=== PATIENT | male | born 1945 | race Asian ===

== ENCOUNTER 2019-08-03 00:11 | Inpatient (IN) | payer OTHER ==
[~2019-08-03] VITALS: Ht 170.2 cm; Wt 62.1 kg
[2019-08-03] MEDS ORDERED: SODIUM CHLORIDE 0.9% 1,000 ML IV ONE (01:49)
[2019-08-03] MEDS ORDERED: ONDANSETRON HCL 4 MG/2 ML VIAL IV ONE (02:00)
[2019-08-03] MEDS ORDERED: cefTRIAXone 1GM/50ML D5W 50 ML IV ONE (02:00)
[2019-08-03 02:23] LABS: Hemoglobin 13.1 g/dL (13.5-17.5)
[2019-08-03 02:24] LABS: Hematocrit 42.2 % (41.0-53.0); Mean Corpuscular Hemoglobin 21.4 pg (28.0-32.0); Mean Corpuscular Hgb Conc. 31.1 g/dL (32.0-36.0); Mean Corpuscular Volume 68.9 fL (80.0-100.0); Platelet Count (auto) 207 10^3/uL (140-450); Red Blood Cells 6.12 10^6/uL (4.5-5.90); Red Cell Distribution Width 16.4 % (11.8-14.3); White Blood Cell 11.1 10^3/uL (4.4-10.8)
[2019-08-03 02:34] LABS: Basophils % (manual) 0 (0.0-2.0); Blast Cells 0; Metamyelocytes % 0; Myelocytes % 0; Promyelocytes % 0; Reactive Lymphocytes 0
[2019-08-03 02:43] LABS: Alanine Aminotransferase 34 U/L (16-61); Albumin 4.4 g/dL (3.4-5.0); Anion Gap 8 (5-15); Aspartate Aminotransferase 32 U/L (15-37); BUN/Creatinine Ratio 12.3; Blood Urea Nitrogen 25 mg/dL (7-18); Calcium 9.2 mg/dL (8.5-10.1); Carbon Dioxide 26 mmol/L (21-32); Chloride 107 mmol/L (98-107); GFR African American 42 mL/min; GFR Non-African American 35 mL/min; Glucose 108 mg/dL (74-106); Lipase 112 U/L (73-393); Potassium 4.2 mmol/L (3.5-5.1); Sodium 141 mmol/L (136-145)
[2019-08-03 02:49] LABS: Alkaline Phosphatase 96 U/L (45-117); Bilirubin, Total 0.4 mg/dL (0.2-1.0); Total Protein 8.6 g/dL (6.4-8.2)
[2019-08-03] MEDS ORDERED: metroNIDAZOLE 500MG/100ML 100 ML IV ONE (03:00)
[2019-08-03 03:25] LABS: Band Neutrophils % (manual) 18; Eosinophils % (manual) 1 (0-7); Lymphocytes % (manual) 5 (10.0-50.0); Monocytes % (manual) 2 (0-12)
[2019-08-03 04:08] LABS: Urine Bacteria NONE SEEN /hpf (None Seen); Urine Blood Negative /uL (Negative); Urine Hyaline Cast FEW /lpf (0 - 2); Urine Mucus FEW (None Seen); Urine Specific Gravity 1.011 (1.001-1.035); Urine WBC 1 /hpf (0 - 3)
[2019-08-03] MEDS ORDERED: SODIUM CHLORIDE 0.9% 1,000 ML IV SCH ×3 (05:05→16:15)
[2019-08-03] MEDS ORDERED: ONDANSETRON HCL 4 MG/2 ML VIAL IV PRN (05:15)
[2019-08-03] MEDS ORDERED: TEMAZEPAM 15 MG CAP PO PRN (05:15)
[2019-08-03] MEDS ORDERED: HYDROcodone-ACET 5/325MG TAB PO PRN (05:15)
[2019-08-03] MEDS ORDERED: ACETAMINOPHEN 325 MG TAB PO PRN (05:15)
[2019-08-03 09:00] VITALS: BP 114/66
[2019-08-03 10:00] VITALS: BP 114/66
[2019-08-03] MEDS ORDERED: PANTOPRAZOLE 40 MG TAB PO SCH (10:00)
[2019-08-03] MEDS ORDERED: ATENOLOL 25 MG TAB PO SCH (10:00)
[2019-08-03] MEDS ORDERED: amLODIPine BESYLATE 5 MG TAB PO SCH (10:00)
--- NOTE | 2019-08-03 10:00 | NUR ---
MS admit from ER RUTH DURÁN admitted to tele/MS after SBAR received. Patient oriented to IBRAHIMA ADAN,RN primary RN, unit, room21, bed A, and unit policies regarding patient care and visiting hours. Patient weighed by bedscale and encouraged to call if they need something. All questions and concerns addressed, patient verbalized understanding.
--- NOTE | 2019-08-03 10:30 | NUR ---
PER DOCTOR GARETH HOLD ALL MORNING MEDICATION.
--- NOTE | 2019-08-03 10:33 | NUR ---
SPOKE WITH DOCTOR SERVIN, NEW ORDERS RECEIVED, SEE EMR FOR ORDERS.
[2019-08-03 11:28] LABS: Protein, Urine 10.5 mg/dL (0.0-11.9)
[2019-08-03] MEDS ORDERED: ATEN-60 PO (12:34)
[2019-08-03] MEDS ORDERED: ATOR10TA52 PO (12:34)
[2019-08-03] MEDS ORDERED: AML5T PO (12:34)
[2019-08-03] MEDS ORDERED: LOSA-39 PO (12:34)
[2019-08-03 13:00] VITALS: BP 106/63
[2019-08-03 13:31] LABS: BUN/Creatinine Ratio 14.3; Calcium 8.1 mg/dL (8.5-10.1); Potassium 4.5 mmol/L (3.5-5.1)
--- NOTE | 2019-08-03 14:32 | NUR ---
Doctor Stephanie was at bedside. POC was discussed with this RN. communicated recommendations to this RN. Recommendations will be communicated to . Addendum: 08/03/19 at 1610 by IBRAHIMA ADAN RN RN Recommendations communicated to .
[2019-08-03 17:11] VITALS: BP 102/67
--- NOTE | 2019-08-03 18:04 | NUR ---
Discharge instructions given as ordered. Encourage to follow up with PMD as instructed. All questions and concerns addressed. Patient verbalized understanding. Medication reconciliation form completed and copy given to patient. No home medications held in Pharmacy and none returned to patient, and no needed vaccines given. IV removed with catheter intact, pressure dressing applied. Patient taken to vehicle via wheelchair with all personal belongings, accompanied by staff and family member. No distress noted at time of departure.
[2019-08-03] MEDS ORDERED: cefTRIAXone 1GM/50ML D5W 50 ML IV SCH (21:00)
[2019-08-03] MEDS ORDERED: ATORVASTATIN 20 MG TAB PO SCH (22:00)
== END 2019-08-03 18:04 | disposition home or self-care (01) | DRG 249 ==
LOC: ER 00:12 → OVERFLOW 00:13 → CENTRAL 09:10
PROVIDERS: ADMIT Nurse Practitioner; ATTEND Nurse Practitioner
DX: K52.9 Noninfective gastroenteritis and colitis, unspecified (principal); N17.9 Acute kidney failure, unspecified; R65.10 Systemic inflammatory response syndrome (SIRS) of non-infectious origin without acute organ dysfunction; E86.0 Dehydration; N18.3 Chronic kidney disease, stage 3 (moderate); E78.5 Hyperlipidemia, unspecified; I12.9 Hypertensive chronic kidney disease with stage 1 through stage 4 chronic kidney disease, or unspecified chronic kidney disease; I70.0 Atherosclerosis of aorta; K40.90 Unilateral inguinal hernia, without obstruction or gangrene, not specified as recurrent; K44.9 Diaphragmatic hernia without obstruction or gangrene; G89.29 Other chronic pain; N40.0 Benign prostatic hyperplasia without lower urinary tract symptoms; Z82.3 Family history of stroke; Z82.49 Family history of ischemic heart disease and other diseases of the circulatory system; Z79.899 Other long term (current) drug therapy
CPT/HCPCS: 36415; 71045; 74176; 80048; 80053; 81001; 82570; 83036; 83690; 83880; 84154; 84156; 84300; 84484; 85007; 85027; 93005; G0378; J0696; J2405; J3490

== ENCOUNTER 2024-10-22 08:52 | Emergency (ER) | payer MEDICARE, OTHER ==
[~2024-10-22] VITALS: Ht 170.2 cm; Wt 67.0 kg
[~2024-10-22 08:52] MED LIST: AML5T PO; ATEN-60 PO; ATOR10TA52 PO; LOSA-535 PO
--- NOTE | 2024-10-22 09:21 | ED.PDOC ---
History of Present Illness HPI Comments 78 year old male brought in by daughter presents to the ED with chief complaint of dizziness. Daughter reports that the patient has been experiencing dizziness with associated nausea and vomiting since today, however, the patient had been complaining of SOB since last night. Daughter relays that the patient had a previous CVA with left sided deficits, but does not currently have any facial droop or obvious weakness. Patient denies any diarrhea, abdominal pain, dizziness, chest pain, fever, chills, or dysuria. Chief Complaint: Dizziness Time Seen by MD: 09:16 Primary Care Provider: SIDDHARTH Reviewed Notes: Nurses Notes, Medications, Allergies Allergies: Coded Allergies: NO KNOWN ALLERGIES (Unverified , 08/03/19) Home Meds Reported Medications Losartan Potassium (Losartan Potassium) 100 Mg Tab, 100 MG PO DAILY for 30 Days, MG 08/03/19 Atenolol (Atenolol) 25 Mg Tab, 25 MG PO DAILY for 30 Days, MG 08/03/19 Amlodipine Besylate (NORVASC TABLET) 5 Mg Tb, 2 TAB PO DAILY, #30 TAB 5 Refills 08/03/19 Atorvastatin Calcium (ATORVASTATIN CALCIUM) 10 Mg Tab, 10 MG PO DAILY, TAB 08/03/19 Information Source: Patient, Relative (Daughter) Mode of Arrival: Wheelchair Severity: Moderate Timing: Hours Duration: Since onset Prehospital treatment: None Past Medical History PAST MEDICAL HISTORY: CVA, High Lipids, HTN Surgical History: Denies all surgeries Family History Family History: Unknown Social History Smoker: Non-Smoker Alcohol: Denies ETOH Use Drugs: Denies Drug Use Lives In: Home Constitutional: denies: chills, diaphoresis, fatigue, fever, malaise, sweats, weakness, others EENTM: denies: blurred vision, double vision, ear bleeding, ear discharge, ear drainage, ear pain, ear ringing, eye pain, eye redness, hearing loss, mouth pain, mouth swelling, nasal discharge, nose bleeding, nose congestion, nose pain, photophobia, tearing, throat pain, throat swelling, voice changes, others Respiratory: reports: shortness of breath; denies: cough, hemoptysis, orthopnea, SOB at rest, SOB with excertion, stridor, wheezing, others Cardiovascular: denies: chest pain, dizzy spells, diaphoresis, Dyspnea on exertion, edema, irregular heart beat, left arm pain, lightheadedness, palpitations, PND, syncope, others Gastrointestinal: reports: nausea, vomiting; denies: abdomen distended, abdominal pain, blood streaked bowels, constipated, diarrhea, dysphagia, difficulty swallowing, hematemesis, melena, poor appetite, poor fluid intake, rectal bleeding, rectal pain, others Genitourinary: denies: burning, dysuria, flank pain, frequency, hematuria, incontinence, penile discharge, penile sore, pain, testicle pain, testicle swelling, urgency, others Neurological: reports: dizziness; denies: fainting, headache, left sided numbness, left sided weakness, numbness, paresthesia, pre-existing deficit, right sided numbness, right sided weakness, seizure, speech problems, tingling, tremors, weakness, others Musculoskeletal: denies: back pain, gout, joint pain, joint swelling, muscle pain, muscle stiffness, neck pain, others Integumetry: denies: bruises, change in color, change in hair/nails, dryness, laceration, lesions, lumps, rash, wounds, others Allergic/Immunocompromised: denies: Difficulty Healing, Frequent Infections, Hives, Itching, others Hematologic/Lymphatic: denies: anemia, blood clots, easy bleeding, easy bruising, swollen glands, others Endocrine: denies: excessive hunger, excessive sweating, excessive thirst, excessive urination, flushing, intolerance to cold, intolerance to heat, unexplained weight gain, unexplained weight loss, others Psychiatric: denies: anxiety, bipolar disorder, depression, hopeless, panic disorder, schizophrenia, sleepless, suicidal, others All Other Systems: Reviewed and Negative Physical Exam General Appearance: No Apparent Distress, Normal, Other (Subdued, but responds appropriately.) HEENT: Normal ENT Inspection, PERRL/EOMI Neck: Full Range of Motion, Non-Tender, Normal, Normal Inspection Respiratory: Chest Non-Tender, Lungs Clear, No Accessory Muscle Use, No Respir atory Distress, Normal Breath Sounds Cardiovascular: No Edema, No JVD, No Murmur, No Gallop, Normal Peripheral Pulses, Regular Rate/Rhythm Breast Exam: Deferred Gastrointestinal: No Organomegaly, Non Tender, No Pulsatile Mass, Normal Bowel Sounds, Soft Genitalia: Deferred Pelvic: Deferred Rectal: Deferred Extremities: No calf tenderness, Normal capillary refill, Normal inspection, Normal range of motion, Non-tender, No pedal edema Musculoskeletal : Apperance: Normal Neurologic: Alert, setter helper II-XII nml as Tested, No Motor Deficits, Normal Affect, Normal Mood, No Sensory Deficits, Other (GCS 14) Cerebellar Function: Normal Reflexes: Normal Skin: Dry, Normal Color, Warm Lymphatic: No Adenopathy Was a procedure done? Was a procedure done?: No EKG EKG : Pulse Rate (adult): 73 [place]: Normal Cardiac Rhythm: NSR Block: None Hypertrophy: None ST: Nonsp Differential Dx Considerations may include: Benign positional vertigo, Meniere's disease, schwannoma, impacted ears, dehydration, hypotension, polypharmacy, medication side effect, labyrinthitis, other viral illness, otolith malfunction X-Ray, Labs, Meds, VS Vital Signs Date Time Temp Pulse Resp B/P (MAP) Pulse Ox O2 Delivery O2 Flow Rate FiO2 10/22/24 16:00 86 16 121/68 (85) 98 10/22/24 14:00 88 16 121/61 (81) 98 10/22/24 12:00 79 16 117/60 (79) 98 10/22/24 12:00 78 10/22/24 10:00 82 16 127/52 (77) 97 10/22/24 09:30 98.2 82 16 131/58 (82) 98 98.2 10/22/24 09:30 83 16 98 Room Air* 0 21 10/22/24 09:22 73 10/22/24 09:04 98.2 79 18 138/68 (91) 98 Lab Test 10/22/24 12:53 10/22/24 12:00 10/22/24 10:51 10/22/24 09:47 Range/Units Troponin I High Sensitivity 11 9 7 </=54 ng/L Urine Color Yellow Yellow Urine Clarity Clear Clear Urine pH 5.5 5.0-9.0 Urine Specific [place] 1.024 1.001-1.035 Urine Protein Trace H Negative Urine Ketones Negative Negative Urine Blood Negative Negative /uL Urine Nitrite Negative Negative Urine Bilirubin Negative Negative Urine Urobilinogen Normal Negative mg/dL Urine Leukocyte Esterase Negative Negative /uL Urine RBC None seen 0 - 3 /hpf Urine WBC 1 0 - 3 /hpf Urine Squamous Epithelial Cells Few <5 /hpf Urine Bacteria None seen None Seen /hpf Urine Mucus Few None Seen Urine Glucose Normal Normal mg/dL Influenza Type A Antigen Negative Negative Influenza Type B Antigen Negative Negative SARS-CoV-2 Antigen (Rapid) Negative NEGATIVE Group A Streptococcus Rapid Negative White Blood Count 7.5 4.4-10.8 10^3/uL Red Blood Count 6.12 H 4.5-5.90 10^6/uL Hemoglobin 13.5 13.5-17.5 g/dL Hematocrit 42.5 41.0-53.0 % Mean Corpuscular Volume 69.4 L 80.0-100.0 fL Mean Corpuscular Hemoglobin 22.1 L 28.0-32.0 pg Mean Corpuscular Hemoglobin Concent 31.9 L 32.0-36.0 g/dL Red Cell Distribution Width 16.4 H 11.8-14.3 % Platelet Count 196 140-450 10^3/uL Mean Platelet Volume 7.6 6.9-10.8 fL Neutrophils (%) (Auto) 75.8 37.0-80.0 % Lymphocytes (%) (Auto) 13.2 10.0-50.0 % Monocytes (%) (Auto) 9.8 0.0-12.0 % Eosinophils (%) (Auto) 0.7 0.0-7.0 % Basophils (%) (Auto) 0.5 0.0-2.0 % Neutrophils # (Auto) 5.7 1.6-8.6 10 ^3/uL Lymphocytes # (Auto) 1.0 0.4-5.4 10 ^3/uL Monocytes # (Auto) 0.7 0-1.3 10 ^3/uL Eosinophils # (Auto) 0.1 0-0.8 10 ^3/uL Basophils # (Auto) 0 0-0.2 10 ^3/uL Nucleated Red Blood Cells 0.1 % Sodium Level 138 136-145 mmol/L Potassium Level 3.3 L 3.5-5.1 mmol/L Chloride Level 103 98-107 mmol/L Carbon Dioxide Level 26 20-31 mmol/L Anion Gap 9 5-15 Blood Urea Nitrogen 12 9-23 mg/dL Creatinine 1.44 H 0.700-1.30 mg/dL Glomerular Filtration Rate Calc 50 >90 mL/min BUN/Creatinine Ratio 8.3 L 10.0-20.0 Serum Glucose 134 H 74-106 mg/dL Calcium Level 10.0 8.7-10.4 mg/dL Total Bilirubin 1.0 0.2-1.0 mg/dL Aspartate Amino Transferase (AST) 22 13-40 U/L Alanine Aminotransferase (ALT) 18 7-40 U/L Alkaline Phosphatase 91 46-116 U/L Total Protein 7.5 5.7-8.2 g/dL Albumin 4.4 3.2-4.8 g/dL Current Medications Medications (Trade) Dose Ordered Sig/Tello Route Start Time Stop Time Status Last Admin Metoclopramide HCl (Reglan Injection) 10 mg ONCE ONCE IV 10/22/24 09:15 10/22/24 09:22 DC 10/22/24 09:53 Meclizine HCl (Antivert Tablet) 25 mg ONCE ONCE PO 10/22/24 11:30 10/22/24 11:32 DC 10/22/24 12:14 CT Head: FINDINGS: There is no evidence of acute intracranial hemorrhage, mass, mass effect midline shift. There is no hydrocephalus or extra-axial fluid collection. There is a chronic appearing infarct extending from the right posterior sheikh radiata into the right basal ganglia. There are patchy chronic small-vessel white matter ischemic changes. The visualized paranasal sinuses and mastoid air cells are clear. The calvarium is intact. IMPRESSION: 1. No acute intracranial process. 2. Chronic appearing infarct extending from the right posterior sheikh radiata into the right basal ganglia. Chest XR: FINDINGS: Lines and Tubes: None Lungs: Clear Pleura: No effusion. No pneumothorax. Cardiomediastinal contours: Unremarkable Bones: Unremarkable IMPRESSION: No acute disease. Images Reviewed?: Images reviewed and evaluated by me Time of 1ST Reevaluation: 10:16 Reevaluation 1ST: Unchanged Patient Education/Counseling: Diagnosis, Treatment Family Education/Counseling: Diagnosis, Treatment Additional Information I reviewed the following notes from patient's past medical encounters: 08/03/19 for acute renal failure The following tests were ordered, and results were reviewed by me: COVID-19, Strep, Flu A/B, EKG, Troponin, Chest XR, CT Head, UA, CBC, CMP Additional Information was gathered from interviewing the following independent historians: Daughter I reviewed and agreed with the following test results read by other providers: Chest XR, CT Head I discussed treatment and results with medical personnel and daughter. Departure 1 Departure Time of Disposition: 11:29 Impression: Primary Impression: Vertigo Additional Impression: Gastroenteritis Disposition: ADMITTED INPATIENT Admit to: Tele Condition: Guarded Critical Care Note Critical Care Time?: No Stability Stability form required: No Heart Score Heart Score: Heart Score Response (Comments) Value History N/A 0 EKG N/A 0 Age N/A 0 Risk Factors N/A 0 Troponin N/A 0 Total 0 I personally scribed for HARIS ROMO MD ([email or web address]) on 10/22/24 at 09:21. Electronically submitted by Isra Gonzales ([email or web address]). I personally scribed for HARIS ROMO MD ([email or web address]) on 10/22/24 at 09:22. Electronically submitted by Isra Gonzales ([email or web address]). I personally scribed for HARIS ROMO MD ([email or web address]) on 10/22/24 at 09:23. Electronically submitted by Isra Gonzales ([email or web address]). I personally scribed for HARIS ROMO MD ([email or web address]) on 10/22/24 at 10:36. Electronically submitted by Isra Gonzales ([email or web address]). I personally scribed for HARIS ROMO MD ([email or web address]) on 10/22/24 at 11:30. Electronically submitted by Isra Gonzales ([email or web address]). HARIS ROMO MD Oct 22, 2024 09:21
[2024-10-22 09:30] VITALS: PULSE 83; RESP 16; O2SAT 98
--- NOTE | 2024-10-22 09:42 | DVH ---
CHEST RADIOGRAPH Indication: sob Technique: Single frontal view of the chest was obtained COMPARISON: None FINDINGS: Lines and Tubes: None Lungs: Clear Pleura: No effusion. No pneumothorax. Cardiomediastinal contours: Unremarkable Bones: Unremarkable IMPRESSION: No acute disease.
[2024-10-22] MEDS: METOCLOPRAMIDE HCL 5MG/ml INJ 2ml VIAL IV ONE (09:53)
--- NOTE | 2024-10-22 10:05 | DVH ---
EXAM: CT HEAD WITHOUT CONTRAST HISTORY: vertigo COMPARISON: None TECHNIQUE: Axial images of the head were obtained and reformatted in coronal and sagittal planes. All CT scans at this medical facility are performed using dose modulation techniques as appropriate t o a performed exam including the following: Automated exposure control was utilized; adjustment of th e MA and/or KV according to patient size; and use of iterative reconstruction technique. CT Dose: CTDI volume is 53 mGy. Dose-length product is a 63 mGy*cm FINDINGS: There is no evidence of acute intracranial hemorrhage, mass, mass effect midline shift. There is no h ydrocephalus or extra-axial fluid collection. There is a chronic appearing infarct extending from th e right posterior sheikh radiata into the right basal ganglia. There are patchy chronic small-vessel white matter ischemic changes. The visualized paranasal sinuses and mastoid air cells are clear. The calvarium is intact. IMPRESSION: 1. No acute intracranial process. 2. Chronic appearing infarct extending from the right posterior sheikh radiata into the right basal g [place]. HS:Y
[2024-10-22 10:35] LABS: Basophils # (auto) 0 10 ^3/uL (0-0.2); Basophils % (auto) 0.5 % (0.0-2.0); Eosinophils # (auto) 0.1 10 ^3/uL (0-0.8); Monocytes # (auto) 0.7 10 ^3/uL (0-1.3); Nucleated Red Blood Cells % 0.1 %; Red Blood Cells 6.12 10^6/uL (4.5-5.90)
[2024-10-22 10:39] LABS: Eosinophils % (auto) 0.7 % (0.0-7.0); Hematocrit 42.5 % (41.0-53.0); Hemoglobin 13.5 g/dL (13.5-17.5); Lymphocytes % (auto) 13.2 % (10.0-50.0); Mean Corpuscular Hemoglobin 22.1 pg (28.0-32.0); Mean Corpuscular Hgb Conc. 31.9 g/dL (32.0-36.0); Mean Corpuscular Volume 69.4 fL (80.0-100.0); Monocytes % (auto) 9.8 % (0.0-12.0); Neutrophils # (auto) 5.7 10 ^3/uL (1.6-8.6); Neutrophils % (auto) 75.8 % (37.0-80.0); Platelet Count (auto) 196 10^3/uL (140-450); Red Cell Distribution Width 16.4 % (11.8-14.3); White Blood Cell 7.5 10^3/uL (4.4-10.8)
[2024-10-22 10:54] LABS: Alanine Aminotransferase 18 U/L (7-40); Albumin 4.4 g/dL (3.2-4.8); Alkaline Phosphatase 91 U/L (46-116); Anion Gap 9 (5-15); Aspartate Aminotransferase 22 U/L (13-40); BUN/Creatinine Ratio 8.3 (10.0-20.0); Blood Urea Nitrogen 12 mg/dL (9-23); Carbon Dioxide 26 mmol/L (20-31); Chloride 103 mmol/L (98-107); Sodium 138 mmol/L (136-145)
[2024-10-22 10:55] LABS: Total Protein 7.5 g/dL (5.7-8.2)
[2024-10-22 11:05] LABS: Glucose 134 mg/dL (74-106); Potassium 3.3 mmol/L (3.5-5.1)
[2024-10-22] MEDS: MECLIZINE HCL 25 MG TAB PO ONE (12:14)
[2024-10-22 13:28] LABS: Urine Bacteria None Seen /hpf (None Seen)
[2024-10-22 13:43] LABS: Urine Blood Negative /uL (Negative); Urine Clarity Clear (Clear); Urine Color Yellow (Yellow); Urine Mucus FEW (None Seen); Urine Protein, UAD TRACE (Negative); Urine Specific Gravity 1.024 (1.001-1.035); Urine Squamous Epithelial Cell FEW /hpf (<5); Urine Urobilinogen Normal (Negative); Urine WBC 1 /hpf (0 - 3); Urine pH 5.5 (5.0-9.0)
[2024-10-22 13:50] LABS: Rapid Strep A Screen-Throat Negative
[2024-10-22 13:51] LABS: COVID19 ANTIGEN SOFIA FIA NEGATIVE (NEGATIVE); Rapid Influenza A Negative (Negative); Rapid Influenza B Negative (Negative)
--- NOTE | 2024-10-22 18:55 | ECG ---
[facility] Test Date: 2024-10-22 Test Time: 09:11:37 Pat Name: RUTH DURÁN Department: ED Room: Gender: M Food Chemist: PETER : 1945 Requested By: HARIS ROMO Order Number: [id number] Reading MD: Rich Askew Measurements Intervals [place] Rate: 73 P: 47 SD: 192 QRS: 7 QRSD: 101 T: 1 QT: 416 QTc: 459 Interpretive Statements Sinus rhythm RSR' in V1 or V2, right VCD or RVH Inferior infarct, old Baseline wander in lead(s) V1 Electronically Signed On 10-31-2024 14:09:54 PST by Rich Askew Please click the below link to view image of tracing.
[2024-10-22 19:30] VITALS: BP 128/70; PULSE 97; RESP 16; TEMP 98.4; O2SAT 98
[2024-10-22] MEDS ORDERED: hydrALAZINE HCL 20 MG/ML VL IV PRN (19:30)
[2024-10-22] MEDS ORDERED: HYDROcodone-ACET 5/325MG TAB PO PRN (19:30)
[2024-10-22] MEDS ORDERED: DOCUSATE SOD 100 MG CAP PO PRN (19:30)
[2024-10-22] MEDS ORDERED: MECLIZINE HCL 25 MG TAB PO PRN (19:30)
[2024-10-22] MEDS ORDERED: ONDANSETRON HCL 4 MG/2 ML VIAL IV PRN (19:30)
[2024-10-22] MEDS ORDERED: SODIUM CHLORIDE 0.9% 1,000 ML IV SCH (19:30)
[2024-10-22] MEDS ORDERED: ACETAMINOPHEN 325 MG TAB PO PRN (19:30)
[2024-10-22] MEDS ORDERED: ATORVASTATIN 20 MG TAB PO SCH (22:00)
[2024-10-23] MEDS ORDERED: ASPirin 81 mg TAB PO SCH (10:00)
== END 2024-10-22 19:53 | disposition left against medical advice (07) ==
LOC: ER 08:52
DX: R42 Dizziness and giddiness (principal); K52.9 Noninfective gastroenteritis and colitis, unspecified; I10 Essential (primary) hypertension; R11.2 Nausea with vomiting, unspecified; E78.5 Hyperlipidemia, unspecified; Z86.73 Personal history of transient ischemic attack (TIA), and cerebral infarction without residual deficits; Z20.822 Contact with and (suspected) exposure to COVID-19
CPT/HCPCS: 36415; 70450; 71045; 80053; 81001; 84484; 85025; 87070; 87426; 87804; 87880; 93005; 96374; 99285; J2765; J8597